=== PATIENT | male | born 2000 | race Caucasian/White ===

== ENCOUNTER 2023-05-23 13:19 | Inpatient (IN) | payer BC ==
[~2023-05-23] VITALS: Ht 193 cm; Wt 102.3 kg
[2023-05-23] MEDS ORDERED: MED REC IN PROGRESS XX SCH (14:00)
[2023-05-23] MEDS ORDERED: CETI10TA PO (14:15)
[2023-05-23 14:18] LABS: HEMATOCRIT 45.5 % (42.0-52.0); HEMOGLOBIN 15.7 g/dl (13.5-17.5); MEAN CORPUSCULAR HEMOGLOBIN 29.3 pg (27.0-33.0); MEAN CORPUSCULAR HGB CONC 34.5 g/dl (32.0-36.5); PLATELET COUNT, AUTOMATED 196 10^3/uL (150-450); RED BLOOD COUNT 5.35 10^6/uL (4.30-6.10)
[2023-05-23] MEDS ORDERED: HOME MED LIST COMPLETE! XX SCH (14:20)
[2023-05-23 14:43] LABS: AMPHETAMINES LEVEL URINE NEGATIVE (NEGATIVE); BARBITURATES URINE NEGATIVE (NEGATIVE); COCAINE METABOLITE URINE NEGATIVE (NEGATIVE); METHADONE URINE NEGATIVE (NEGATIVE)
[2023-05-23 14:44] LABS: BENZODIAZEPINES URINE NEGATIVE (NEGATIVE); CANNABINOIDS URINE NEGATIVE (NEGATIVE); OPIATES URINE NEGATIVE (NEGATIVE); PHENCYCLIDINE URINE NEGATIVE (NEGATIVE)
[2023-05-23 14:46] LABS: ETHYL ALCOHOL (ETHANOL) < 0.003 % (0.000-0.010)
[2023-05-23 14:47] LABS: ALBUMIN 4.4 G/DL (3.2-5.2); ALKALINE PHOSPHATASE 66 U/L (46-116); ALT/SGPT 25 U/L (7.0-40); AST/SGOT 18 U/L (<34); BILIRUBIN,DIRECT 0.3 MG/DL (<0.4); BLOOD UREA NITROGEN 19 MG/DL (9-23); CALCIUM LEVEL 8.8 MG/DL (8.5-10.1); CARBON DIOXIDE LEVEL 26 MMOL/L (20-31); CHLORIDE LEVEL 107 MMOL/L (98-107); CREATININE FOR GFR 0.82 MG/DL (0.70-1.30); GLOMERULAR FILTRATION RATE > 60.0 (>60); GLUCOSE, FASTING 108 MG/DL (60-100); SALICYLATE LEVEL < 3.0 MG/DL (<30); SODIUM LEVEL 138 MMOL/L (136-145); TOTAL PROTEIN 7.1 G/DL (5.7-8.2)
[2023-05-23 14:49] LABS: THYROID STIMULATING HORMONE 1.952 uIU/ML (0.55-4.78)
[2023-05-23] MEDS: OLANZapine ORAL DISINTEGRATING TAB 5MG PO ONE (15:02)
[2023-05-23] MEDS: LORazepam 1 MG TAB PO ONE (23:53)
[2023-05-24] MEDS ORDERED: IBUPROFEN 400MG TAB PO PRN (10:50)
[2023-05-24] MEDS ORDERED: MOM 30ML SUSPENSION UDC PO PRN (10:50)
[2023-05-24] MEDS ORDERED: MAALOX 30 ML SUSP *UDC PO PRN (10:50)
[2023-05-24] MEDS ORDERED: diphenhydrAMINE 25MG CAP PO PRN (10:50)
[2023-05-24] MEDS ORDERED: LORazepam 1 MG TAB PO PRN (10:50)
[2023-05-24] MEDS ORDERED: OLANZapine ORAL DISINTEGRATING TAB 5MG PO PRN (10:50)
[2023-05-24] MEDS ORDERED: ACETAMINOPHEN TAB 650MG DOSE (2X325MG) PO PRN (10:50)
[2023-05-25] MEDS: CETIRIZINE (ZyrTEC) 10 MG TAB PO PRN (00:23)
[2023-05-25] MEDS: traZODone 50 MG TAB PO PRN (00:43)
[2023-05-25 06:21] VITALS: BP 139/67; TEMP 97.5; O2SAT 100
[2023-05-25] MEDS: NICOTINE 21MG/24HR 1 EA TRANSDERMAL TD SCH (09:00)
[2023-05-25] MEDS: DIVALPROEX 250MG *ER* TAB PO SCH (09:14)
[2023-05-25 16:07] VITALS: BP 141/87; TEMP 98.3; O2SAT 96
[2023-05-25] MEDS: OLANZapine 5 MG TAB PO SCH (20:31)
[2023-05-26 06:13] VITALS: BP 130/79; TEMP 98.6; O2SAT 99
[2023-05-26 14:44] VITALS: BP 140/65; TEMP 97.7; O2SAT 96
[2023-05-27 18:30] VITALS: BP_SYST 132; BP_SYST 138; BP_DIAS 59; BP_DIAS 86; TEMP 97.5; TEMP 98.5; O2SAT 97; O2SAT 98
[2023-05-28 06:39] VITALS: BP 137/63; TEMP 96.9; O2SAT 99
[2023-05-28 08:25] LABS: CHOLESTEROL RISK RATIO 3.7 (<5); HDL CHOLESTEROL 30.2 MG/DL (>40); NON-HDL-C 81.8 MG/DL
[2023-05-28 17:30] VITALS: BP 132/79; TEMP 99; O2SAT 99
[2023-05-29 06:37] VITALS: BP 143/75; TEMP 97.6; O2SAT 100
[2023-05-29] MEDS ORDERED: DEPA250T2 PO (07:56)
[2023-05-29] MEDS ORDERED: OLAN1TAB16 PO (07:56)
[2023-05-29 08:46] VITALS: BP 143/75; TEMP 97.6; O2SAT 100
[2023-05-29] MEDS ORDERED: OLAN5ZYD PO (09:20)
[2023-05-29] MEDS ORDERED: TRAZ-252 PO (09:20)
== END 2023-05-29 11:03 | disposition home or self-care (01) | DRG 751 ==
LOC: M ED 13:19 → M ED INP 05-24 10:50 → M PSY 05-24 13:09
PROVIDERS: ADMIT Student in an Organized Health Care Education/Training Program; ATTEND Student in an Organized Health Care Education/Training Program
DX: F29 Unspecified psychosis not due to a substance or known physiological condition (principal); F22 Delusional disorders; F84.9 Pervasive developmental disorder, unspecified; F31.9 Bipolar disorder, unspecified; F90.9 Attention-deficit hyperactivity disorder, unspecified type; J45.909 Unspecified asthma, uncomplicated

== ENCOUNTER → 2023-06-13 | Outpatient (REF) | payer BC ==
[~2023-06-13] MED LIST: CETI10TA PO; DEPA250T2 PO; OLAN1TAB16 PO; OLAN5ZYD PO; TRAZ-252 PO
[2023-06-13 18:46] LABS: C REACTIVE PROTEIN QUANTITATIV < 0.40 MG/DL (<1.0)
[2023-06-13 18:48] LABS: RHEUMATOID FACTOR QUANT < 3.5 IU/ML (<14)
[2023-06-13 19:14] LABS: HIV 1&2 SCREEN NEGATIVE (NEGATIVE)
== END ==
LOC: M LAB REF 17:57
PROVIDERS: ATTEND Nurse Practitioner Family
DX: Z11.4 Encounter for screening for human immunodeficiency virus [HIV] (principal); L40.9 Psoriasis, unspecified

== ENCOUNTER → 2023-07-19 | Outpatient (CLI) | payer BC | LOC: M WUC 15:43 | PROVIDERS: ATTEND Nurse Practitioner Family | DX: R05.3 Chronic cough (principal) ==

== ENCOUNTER → 2024-02-28 | Outpatient (CLI) | payer BC ==
[2024-02-28 12:01] LABS: HEMOGLOBIN A1c 4.8 % (4.0-6.0)
[2024-02-28 12:15] LABS: CHOLESTEROL RISK RATIO 4.9 (<5); HDL CHOLESTEROL 26.3 MG/DL (>40); LDL CHOLESTEROL 69.1 MG/DL (<100); NON-HDL-C 102.7 MG/DL
== END ==
LOC: M WUC 09:00
PROVIDERS: ATTEND Psychiatry & Neurology Psychiatry
DX: Z79.899 Other long term (current) drug therapy (principal)

== ENCOUNTER → 2024-02-28 | Outpatient (CLI) | payer BC | LOC: M WUC 10:28 | PROVIDERS: ATTEND Nurse Practitioner Family | DX: R05.9 Cough, unspecified (principal) ==

== ENCOUNTER 2024-09-14 00:48 | Inpatient (IN) | payer BC ==
[~2024-09-14] VITALS: Ht 193 cm; Wt 1.2 kg
[~2024-09-14 00:48] MED LIST changes: +DEPA250T PO; -DEPA250T2 PO
[2024-09-14 01:49] LABS: PLATELET COUNT, AUTOMATED 205 10^3/uL (150-450)
[2024-09-14 02:11] LABS: ETHYL ALCOHOL (ETHANOL) < 0.003 % (0.000-0.010)
[2024-09-14 02:13] LABS: ALT/SGPT 58 U/L (7.0-40); AST/SGOT 29 U/L (<34); CALCIUM LEVEL 9.4 MG/DL (8.5-10.1); CARBON DIOXIDE LEVEL 25 MMOL/L (20-31); CHLORIDE LEVEL 106 MMOL/L (98-107); CREATININE FOR GFR 0.77 MG/DL (0.70-1.30); GLOMERULAR FILTRATION RATE > 90.0 (>60); POTASSIUM SERUM 4.3 MMOL/L (3.5-5.1); SALICYLATE LEVEL < 3.0 MG/DL (<30); SODIUM LEVEL 141 MMOL/L (136-145)
[2024-09-14 02:22] LABS: AMPHETAMINES LEVEL URINE NEGATIVE (NEGATIVE); CANNABINOIDS URINE NEGATIVE (NEGATIVE); PHENCYCLIDINE URINE NEGATIVE (NEGATIVE)
[2024-09-14 02:23] LABS: BARBITURATES URINE NEGATIVE (NEGATIVE); BENZODIAZEPINES URINE NEGATIVE (NEGATIVE); COCAINE METABOLITE URINE NEGATIVE (NEGATIVE); METHADONE URINE NEGATIVE (NEGATIVE); OPIATES URINE NEGATIVE (NEGATIVE)
[2024-09-14] MEDS ORDERED: LURA20TA PO (06:08)
[2024-09-14] MEDS ORDERED: ALLE24TA7 PO (06:08)
[2024-09-14] MEDS ORDERED: HOME MED LIST COMPLETE! XX SCH ×2 (06:10→06:20)
[2024-09-14] MEDS ORDERED: ALLE180T33 PO (06:17)
[2024-09-14] MEDS ORDERED: ACETAMINOPHEN 325 MG TAB PO PRN (06:30)
[2024-09-14] MEDS ORDERED: MAALOX 30 ML SUSP *UDC PO PRN (06:30)
[2024-09-14] MEDS ORDERED: traZODone 50 MG TAB PO PRN (06:30)
[2024-09-14] MEDS ORDERED: MOM 30 ML SUSPENSION UDC PO PRN (06:30)
[2024-09-14] MEDS: FEXOFENADINE 60 MG TAB PO SCH (08:04)
[2024-09-14] MEDS: LURASIDONE HCL 20 MG TAB PO SCH (08:04)
[2024-09-14 09:15] VITALS: BP 170/110; TEMP 97.3; O2SAT 99
[2024-09-14] MEDS: amLODIPine 5 MG TAB PO ONE (15:22)
[2024-09-14] MEDS: OLANZapine ORAL DISINTEGRATING TAB 5MG PO PRN (20:20)
[2024-09-14] MEDS: traZODone 50 MG TAB PO SCH (20:20)
[2024-09-15 08:38] VITALS: BP 144/80; TEMP 97.3; O2SAT 99
[2024-09-15] MEDS: OLANZapine ORAL DISINTEGRATING TAB 5MG PO SCH (12:50)
[2024-09-15] MEDS ORDERED: PILL CUTTER 1 EACH XX PRN (12:55)
[2024-09-15 15:18] VITALS: BP 164/104; TEMP 98; O2SAT 95
[2024-09-15] MEDS: DIVALPROEX 250 MG TAB PO SCH (21:00)
[2024-09-15] MEDS: amLODIPine 5 MG TAB PO SCH (21:29)
[2024-09-16] MEDS: IBUPROFEN 400 MG TAB PO PRN (06:26)
[2024-09-16 06:37] VITALS: BP 198/90; TEMP 99.1; O2SAT 99
[2024-09-16 12:15] VITALS: BP 150/80
[2024-09-16] MEDS: RAMELTEON 8 MG TAB PO PRN (20:15)
[2024-09-16] MEDS: OLANZapine ORAL DISINTEGRATING TAB 5MG PO SCH (20:41)
[2024-09-17 06:29] VITALS: BP 141/81; TEMP 98.5; O2SAT 99
[2024-09-17 08:52] VITALS: BP 120/81
[2024-09-17 15:03] VITALS: BP 150/82; TEMP 97.7; O2SAT 96
[2024-09-17] MEDS: NEOSPORIN TOP OINT 15 GM TOP PRN (18:41)
[2024-09-17] MEDS: OLANZapine 10 MG TAB PO SCH (20:53)
[2024-09-18 06:13] VITALS: BP_SYST 162; BP_SYST 179; BP_DIAS 80; BP_DIAS 86; TEMP 97.4; TEMP 98; O2SAT 98
[2024-09-18 08:05] VITALS: BP 133/71
[2024-09-18] MEDS: OLANZapine ORAL DISINTEGRATING TAB 5MG PO SCH (14:18)
[2024-09-18 16:23] VITALS: BP 130/86; TEMP 98.3; O2SAT 98
[2024-09-19 06:40] VITALS: BP 142/64; TEMP 98.2; O2SAT 98
[2024-09-19] MEDS: HALOPERIDOL 5 MG TAB PO PRN (08:27)
[2024-09-19 09:50] VITALS: BP 138/74; TEMP 98.2; O2SAT 98
[2024-09-19 15:29] VITALS: BP 154/83; TEMP 98.5; O2SAT 98
[2024-09-19] MEDS: OLANZapine ORAL DISINTEGRATING TAB 5MG PO SCH (21:01)
[2024-09-20 06:51] VITALS: BP 142/70; TEMP 98.1; O2SAT 99
[2024-09-20 10:08] VITALS: BP 140/70; TEMP 98.1; O2SAT 99
[2024-09-20 15:15] VITALS: BP 130/77; TEMP 97.6; O2SAT 97
[2024-09-21 06:47] VITALS: BP 147/77; TEMP 97.6; O2SAT 100
[2024-09-21 15:04] VITALS: BP 144/79; TEMP 97.6; O2SAT 98
[2024-09-21] MEDS: CLOBETASOL PROPIONATE EMOLLIENT 0.05% CR 60 GM TOP SCH (22:00)
[2024-09-22 06:52] VITALS: BP 133/66; TEMP 97.4; O2SAT 99
[2024-09-22 15:41] VITALS: BP 128/69; TEMP 97.6; O2SAT 99
[2024-09-23 06:41] VITALS: BP 129/74; TEMP 97.5; O2SAT 100
[2024-09-23] MEDS: PALIPERIDONE 3MG ER TAB PO SCH ×2 (10:40→20:26)
[2024-09-23 16:18] VITALS: BP 141/71; TEMP 98.1; O2SAT 99
[2024-09-24 06:30] VITALS: BP 145/70; TEMP 97.1; O2SAT 99
[2024-09-24 15:15] VITALS: BP 143/82; TEMP 97.6; O2SAT 100
[2024-09-24] MEDS: OLANZapine ORAL DISINTEGRATING TAB 5MG PO SCH (21:04)
[2024-09-25 06:26] VITALS: BP 153/88; TEMP 98; O2SAT 99
[2024-09-25] MEDS ORDERED: DIVA-65 PO (08:02)
[2024-09-25] MEDS ORDERED: NEOM28OI TOP (08:02)
[2024-09-25] MEDS ORDERED: OLANZapine DISINTEGRATING PO (08:02)
[2024-09-25] MEDS ORDERED: CLOB5CR TOP (08:02)
[2024-09-25] MEDS ORDERED: AMLO1TAB24 PO (08:02)
[2024-09-25] MEDS ORDERED: RAME8TAB2 PO (08:03)
[2024-09-25 08:57] VITALS: BP 141/72
[2024-09-25] MEDS ORDERED: OLAN15TA10 PO (15:23)
== END 2024-09-25 12:07 | disposition home or self-care (01) | DRG 750 ==
LOC: M ED 00:48 → M ED INP 06:27 → M PSY 08:46
PROVIDERS: ADMIT Psychiatry & Neurology Neurology; ATTEND Psychiatry & Neurology Neurology
DX: F25.0 Schizoaffective disorder, bipolar type (principal); F41.1 Generalized anxiety disorder; R45.851 Suicidal ideations; F90.9 Attention-deficit hyperactivity disorder, unspecified type; Z79.899 Other long term (current) drug therapy; J45.909 Unspecified asthma, uncomplicated; R03.0 Elevated blood-pressure reading, without diagnosis of hypertension

== ENCOUNTER → 2024-09-30 | Outpatient (REF) | payer BC ==
[~2024-09-30] MED LIST changes: +ALLE180T33 PO; +ALLE24TA7 PO; +AMLO1TAB24 PO; +CLOB5CR TOP; +DIVA-65 PO; +LURA20TA PO; +NEOM28OI TOP; +OLAN15TA10 PO; +OLANZapine DISINTEGRATING PO; +RAME8TAB2 PO
[2024-09-30 18:35] LABS: C REACTIVE PROTEIN QUANTITATIV < 0.50 MG/DL (<1.0); RHEUMATOID FACTOR QUANT 4.1 IU/ML (<14)
[2024-10-03 20:07] LABS: ANA PATTERN 2 Mitotic, Centrosome; ANA TITER 2 1:80 titer (NEGATIVE)
== END ==
LOC: M LAB REF 17:31
PROVIDERS: ATTEND Internal Medicine
DX: M25.50 Pain in unspecified joint (principal)

== ENCOUNTER → 2025-02-04 | Outpatient (CLI) | payer BC ==
[2025-02-04 18:40] LABS: PLATELET COUNT, AUTOMATED 185 10^3/uL (150-450)
[2025-02-04 18:56] LABS: VALPROIC ACID (DEPAKOTE) 16.7 UG/ML (50.0-100.0)
[2025-02-04 18:57] LABS: ALT/SGPT 49.0 U/L (7.0-40); AST/SGOT 30.0 U/L (<34)
== END ==
LOC: M PLALAB 16:11
PROVIDERS: ATTEND Psychiatry & Neurology Psychiatry
DX: Z79.899 Other long term (current) drug therapy (principal)